=== PATIENT | male | born 1940 | race Caucasian/White ===

== ENCOUNTER → 2016-12-21 | Outpatient (CLI) | payer MEDICARE, OTHER ==
[~2016-12-21] MED LIST: ASPIRIN 81M81 MG/TA2 PO; BIAXIN 500MG T500 MG PO; CEPACOL SORE TH1 LO8 MM; CRESTOR20 MG PO; DEMADEX 20MG20 M1 PO; DEMADEX10 MG PO; DOXYCYCLINE 10100 MG PO; DULERA1 ARO IH; FLOVENT 110MCG7.9 GM IH; FORADIL AERO0.012 MG IH; HCTZ 25MG TAB25 MG PO; K-DUR 2020 MEQ PO; KLOR-CON M2020 MEQ PO; LASIX 20MG TABL20 MG PO; LEVAQUIN 750MG750 M1 PO; MICARDIS HCT 121 TA1 PO; MICARDIS HCT 121 TAB PO; MICARDIS40 MG PO; PLAQUENIL 200M200 MG PO; PREDNISONE 5MG5 MG PO; PREDNISONE20 MG PO; REQUIP 0.5MG0.5 MG PO; ROBITUSSIN100 MG/5 M PO; RT SPIRIVA18 MCG IH; SINGULAIR 110 MG/TAB PO; ZYRTEC 10MG10 MG PO; ZYRTEC ALLERGY10 MG PO
== END ==
LOC: COL.RAD 09:00
DX: M25.511 Pain in right shoulder (principal)
CPT/HCPCS: J3301; Q9967

== ENCOUNTER → 2016-12-24 | Outpatient (CLI) | payer MEDICARE, OTHER ==
[~2016-12-24] VITALS: Ht 180.3 cm; Wt 101.2 kg
[2017-01-04 08:14] VITALS: BP 122/76; PULSE 68
[2017-02-01 08:16] VITALS: BP 130/80
[2017-02-15 08:27] VITALS: BP 138/80; PULSE 72
[2017-03-01 08:15] VITALS: BP 140/80; PULSE 76
[2017-03-15 08:30] VITALS: BP 133/72; PULSE 67
[2017-03-29 08:37] VITALS: BP 134/76; PULSE 74
== END ==
LOC: LIGHT 09:00
DX: G47.33 Obstructive sleep apnea (adult) (pediatric) (principal); E78.4 Other hyperlipidemia; I10 Essential (primary) hypertension; E66.8 Other obesity; Z68.29 Body mass index [BMI] 29.0-29.9, adult

== ENCOUNTER 2017-01-12 08:30 | Outpatient (RCR) | payer MEDICARE, OTHER ==
[~2017-01-12 08:30] MED LIST changes: -PLAQUENIL 200M200 MG PO; -PREDNISONE 5MG5 MG PO
[2017-03-01] MEDS ORDERED: PLAQUENIL 200M200 MG PO (08:27)
[2017-03-01] MEDS ORDERED: PREDNISONE 5MG5 MG PO (08:28)
== END 2017-03-02 | disposition home or self-care (01) ==
LOC: MKS.ESL.PT
DX: M25.512 Pain in left shoulder (principal)
CPT/HCPCS: G8978-GP; G8979-GP; G8980-GP

== ENCOUNTER → 2017-04-08 | Outpatient (CLI) | payer MEDICARE, OTHER ==
[~2017-04-08] VITALS: Ht 180.3 cm; Wt 103.4 kg
[~2017-04-08] MED LIST changes: +PLAQUENIL 200M200 MG PO; +PREDNISONE 5MG5 MG PO
[2017-04-08 08:27] VITALS: BP 151/85; PULSE 76
[2017-04-26 08:23] VITALS: BP 135/77; PULSE 85
[2017-05-10 08:22] VITALS: BP 126/76; PULSE 64
[2017-06-07 08:29] VITALS: BP 144/70; PULSE 56
[2017-06-21 10:01] VITALS: BP 136/80; PULSE 76
== END ==
LOC: LIGHT 08:25
DX: G47.33 Obstructive sleep apnea (adult) (pediatric) (principal); I10 Essential (primary) hypertension; E66.9 Obesity, unspecified; Z68.31 Body mass index [BMI] 31.0-31.9, adult; Z71.3 Dietary counseling and surveillance; E78.5 Hyperlipidemia, unspecified

== ENCOUNTER → 2017-06-24 | Outpatient (CLI) | payer MEDICARE, OTHER ==
[2017-06-24 10:38] VITALS: BP 140/76; PULSE 68
== END ==
LOC: LIGHT 05-27 10:35
DX: G47.33 Obstructive sleep apnea (adult) (pediatric) (principal); I10 Essential (primary) hypertension; E66.9 Obesity, unspecified; Z71.3 Dietary counseling and surveillance; E78.5 Hyperlipidemia, unspecified

== ENCOUNTER → 2017-08-05 | Outpatient (CLI) | payer MEDICARE, OTHER ==
[~2017-08-05] VITALS: Ht 180.3 cm; Wt 101.6 kg
[~2017-08-05] MED LIST changes: +RT ADVAIR 128 DISKUS IH
[2017-08-16 08:28] VITALS: BP 142/84; PULSE 72
[2017-08-30 08:05] VITALS: BP 128/60; PULSE 726
== END ==
LOC: LIGHT 09:30
DX: G47.33 Obstructive sleep apnea (adult) (pediatric) (principal); I10 Essential (primary) hypertension; E66.9 Obesity, unspecified; Z71.3 Dietary counseling and surveillance; E78.5 Hyperlipidemia, unspecified

== ENCOUNTER → 2017-09-16 | Outpatient (CLI) | payer MEDICARE, OTHER | LOC: LIGHT 07:59 | DX: G47.33 Obstructive sleep apnea (adult) (pediatric) (principal); I10 Essential (primary) hypertension; E66.9 Obesity, unspecified; Z71.3 Dietary counseling and surveillance; E78.5 Hyperlipidemia, unspecified ==

== ENCOUNTER → 2017-11-18 | Outpatient (CLI) | payer MEDICARE, OTHER ==
[~2017-11-18] VITALS: Ht 180.3 cm; Wt 101.8 kg
[2017-11-18 09:28] VITALS: BP 148/78; PULSE 72
== END ==
LOC: LIGHT 08:44
DX: G47.33 Obstructive sleep apnea (adult) (pediatric) (principal); I10 Essential (primary) hypertension; E66.9 Obesity, unspecified; Z68.31 Body mass index [BMI] 31.0-31.9, adult; Z71.3 Dietary counseling and surveillance; E78.5 Hyperlipidemia, unspecified
CPT/HCPCS: G0463

== ENCOUNTER → 2017-12-02 | Outpatient (CLI) | payer MEDICARE, OTHER | LOC: COL.RAD 09:19 | DX: K42.0 Umbilical hernia with obstruction, without gangrene (principal); K63.89 Other specified diseases of intestine | CPT/HCPCS: Q9967 ==

== ENCOUNTER → 2018-01-13 | Outpatient (CLI) | payer MEDICARE, OTHER ==
[~2018-01-13] VITALS: Ht 180.3 cm; Wt 103.9 kg
[2018-01-13 09:21] VITALS: BP 148/80; PULSE 72
[2018-01-17 08:28] VITALS: BP 120/70; PULSE 72
== END ==
LOC: LIGHT 08:58
DX: G47.33 Obstructive sleep apnea (adult) (pediatric) (principal); I10 Essential (primary) hypertension; E66.9 Obesity, unspecified; Z68.31 Body mass index [BMI] 31.0-31.9, adult; Z71.3 Dietary counseling and surveillance; E78.5 Hyperlipidemia, unspecified
CPT/HCPCS: G0463

== ENCOUNTER 2018-01-17 12:53 | Inpatient (IN) | payer MEDICARE, OTHER ==
[~2018-01-17] VITALS: Ht 180.3 cm; Wt 104.7 kg
[2018-02-02] VITALS (11 sets, daily range): BP systolic 104–156; BP diastolic 49–82; PULSE 67–90; TEMP 98–98.7
[2018-02-02] MEDS ORDERED: RT ADVAIR 228 DISKUS IH (06:34)
[2018-02-02] MEDS ORDERED: K-DUR20 MEQ PO (06:37)
[2018-02-02 06:38] LABS: BASO # 0.1 (0.0-0.2); BASO % 1.2 % (0.0-2.0); EOS # 0.3 (0.0-0.7); GRAN # 3.2 (1.4-6.5); HEMATOCRIT 45.5 % (42.0-52.0); HEMOGLOBIN 15.5 g/dl (13.5-18.0); LYMPH # 1.6 (1.2-3.4); LYMPH % 27.1 % (20.0-51.0); MEAN CELL VOLUME 91 fl (80.0-100.0); MEAN CORPUSCULAR HEMOGLOBIN 31 pg (27.0-31.0); MEAN CORPUSCULAR HGB CONC 34 g/dl (33.0-37.0); MEAN PLATELET VOLUME 11.2 fl (7.4-10.4); MONO # 0.7 (0.1-0.6); MONO % 11.2 % (1.7-9.3); PLATELET COUNT 219 K/mm3 (130-400); RED BLOOD COUNT 4.99 M/mm3 (4.20-5.60); REDCELL DISTRIBUTION WIDTH-CV 13.3 % (11.5-14.5)
[2018-02-02 06:52] LABS: BILIRUBIN,TOTAL 1.9 mg/dL (0.0-1.0); CALCIUM 8.9 mg/dL (8.4-10.2); CREATININE, serum 1.05 mg/dL (0.66-1.25); POTASSIUM 3.8 mmol/L (3.4-5.0); TOTAL PROTEIN 7.2 gm/dL (6.4-8.2)
[2018-02-03 01:42] VITALS: BP 134/62; PULSE 74; TEMP 98.1
[2018-02-03 05:30] VITALS: BP 112/53; PULSE 60; TEMP 98.3
[2018-02-03 06:29] LABS: HEMATOCRIT 39.2 % (42.0-52.0)
[2018-02-03 06:48] LABS: CALCIUM 8.3 mg/dL (8.4-10.2); CREATININE, serum 1.2 mg/dL (0.66-1.25); MAGNESIUM 1.8 mg/dL (1.6-2.3); POTASSIUM 3.9 mmol/L (3.4-5.0)
[2018-02-03 06:53] LABS: HEMOGLOBIN 12.9 g/dl (13.5-18.0)
[2018-02-03 09:23] VITALS: BP 107/54; PULSE 61; TEMP 98.3
[2018-02-03 14:00] VITALS: BP 121/51; PULSE 77; TEMP 97.7
[2018-02-03 17:48] VITALS: BP 132/72; PULSE 70; TEMP 97.8
[2018-02-03 22:00] VITALS: BP 131/60; PULSE 75; TEMP 98.1
[2018-02-04 06:04] VITALS: BP 143/66; PULSE 71; TEMP 98.2
[2018-02-04 10:10] VITALS: BP 136/78; PULSE 87; TEMP 97.9
== END 2018-02-04 12:18 | disposition home or self-care (01) | DRG 331 ==
LOC: INPTSU 02-02 05:45 → SURG 02-02 08:00
PROVIDERS: Surgery
PROC: 8E0W4CZ Robotic Assisted Procedure of Trunk Region, Percutaneous Endoscopic Approach (ICD-10-PCS; 2018-02-02)
PROC: 0DTF4ZZ Resection of Right Large Intestine, Percutaneous Endoscopic Approach (ICD-10-PCS; principal; 2018-02-02 08:00)
DX: C18.2 Malignant neoplasm of ascending colon (principal); J44.9 Chronic obstructive pulmonary disease, unspecified; I27.20 Pulmonary hypertension, unspecified; L93.0 Discoid lupus erythematosus; I25.10 Atherosclerotic heart disease of native coronary artery without angina pectoris; J84.10 Pulmonary fibrosis, unspecified
CPT/HCPCS: A4314; A9284; J0690; J1100; J1650; J2250; J2405; J2704; J2710; J2765; J3010; J7030

== ENCOUNTER → 2018-02-10 | Outpatient (CLI) | payer MEDICARE, OTHER ==
[~2018-02-10] VITALS: Ht 180.3 cm; Wt 101.8 kg
[~2018-02-10] MED LIST changes: +K-DUR20 MEQ PO; +RT ADVAIR 228 DISKUS IH
== END ==
LOC: LIGHT 08:30
DX: G47.33 Obstructive sleep apnea (adult) (pediatric) (principal); I10 Essential (primary) hypertension; E66.9 Obesity, unspecified; Z68.31 Body mass index [BMI] 31.0-31.9, adult; Z71.3 Dietary counseling and surveillance; E78.5 Hyperlipidemia, unspecified
CPT/HCPCS: G0463

== ENCOUNTER → 2018-03-31 | Outpatient (CLI) | payer MEDICARE, OTHER ==
[2018-03-31 09:13] VITALS: BP 124/70; PULSE 68
== END ==
LOC: LIGHT 08:34
DX: G47.33 Obstructive sleep apnea (adult) (pediatric) (principal); I10 Essential (primary) hypertension; E66.9 Obesity, unspecified; Z71.3 Dietary counseling and surveillance; E78.5 Hyperlipidemia, unspecified
CPT/HCPCS: G0463

== ENCOUNTER → 2018-05-03 | Outpatient (CLI) | payer MEDICARE, OTHER ==
[2018-05-03 15:04] LABS: HEMATOCRIT 46.8 % (42.0-52.0); HEMOGLOBIN 15.8 g/dl (13.5-18.0); MEAN CELL VOLUME 91 fl (80.0-100.0); MEAN CORPUSCULAR HEMOGLOBIN 31 pg (27.0-31.0); MEAN CORPUSCULAR HGB CONC 34 g/dl (33.0-37.0); MEAN PLATELET VOLUME 11.6 fl (7.4-10.4); PLATELET COUNT 216 K/mm3 (130-400); RED BLOOD COUNT 5.17 M/mm3 (4.20-5.60); REDCELL DISTRIBUTION WIDTH-CV 13.5 % (11.5-14.5)
[2018-05-03 15:15] LABS: CALCIUM 9.2 mg/dL (8.4-10.2); CREATININE, serum 1.21 mg/dL (0.66-1.25); POTASSIUM 3.6 mmol/L (3.4-5.0)
== END ==
LOC: COL.LAB 14:39
PROVIDERS: Internal Medicine Interventional Cardiology
DX: I70.213 Atherosclerosis of native arteries of extremities with intermittent claudication, bilateral legs (principal)

== ENCOUNTER → 2018-05-12 | Outpatient (CLI) | payer MEDICARE, OTHER ==
[~2018-05-12] MED LIST changes: +PLAVIX 75MG TAB75 MG PO
== END ==
LOC: LIGHT 08:46
DX: G47.33 Obstructive sleep apnea (adult) (pediatric) (principal); I10 Essential (primary) hypertension; E78.5 Hyperlipidemia, unspecified; E66.9 Obesity, unspecified
CPT/HCPCS: G0463

== ENCOUNTER → 2018-05-17 | Outpatient (CLI) | payer MEDICARE, OTHER ==
[2018-05-17 08:02] LABS: HEMATOCRIT 45.8 % (42.0-52.0); HEMOGLOBIN 15.2 g/dl (13.5-18.0); MEAN CELL VOLUME 92 fl (80.0-100.0); MEAN CORPUSCULAR HEMOGLOBIN 31 pg (27.0-31.0); MEAN CORPUSCULAR HGB CONC 33 g/dl (33.0-37.0); MEAN PLATELET VOLUME 11.4 fl (7.4-10.4); PLATELET COUNT 227 K/mm3 (130-400); RED BLOOD COUNT 4.97 M/mm3 (4.20-5.60); REDCELL DISTRIBUTION WIDTH-CV 13.9 % (11.5-14.5)
[2018-05-17 08:13] LABS: CALCIUM 8.9 mg/dL (8.4-10.2); CREATININE, serum 1.1 mg/dL (0.66-1.25); POTASSIUM 3.6 mmol/L (3.4-5.0)
== END ==
LOC: COL.LAB 07:24
PROVIDERS: Internal Medicine Interventional Cardiology
DX: R60.0 Localized edema (principal); L03.116 Cellulitis of left lower limb; B99.9 Unspecified infectious disease

== ENCOUNTER → 2018-06-07 | Outpatient (CLI) | payer MEDICARE, OTHER ==
[2018-06-07 17:09] LABS: HEMATOCRIT 45.8 % (42.0-52.0); HEMOGLOBIN 15.1 g/dl (13.5-18.0); MEAN CELL VOLUME 92 fl (80.0-100.0); MEAN CORPUSCULAR HEMOGLOBIN 30 pg (27.0-31.0); MEAN CORPUSCULAR HGB CONC 33 g/dl (33.0-37.0); MEAN PLATELET VOLUME 11.1 fl (7.4-10.4); PLATELET COUNT 241 K/mm3 (130-400); RED BLOOD COUNT 4.97 M/mm3 (4.20-5.60); REDCELL DISTRIBUTION WIDTH-CV 13.9 % (11.5-14.5)
[2018-06-07 17:17] LABS: CALCIUM 8.7 mg/dL (8.4-10.2); CREATININE, serum 1.05 mg/dL (0.66-1.25); POTASSIUM 3.7 mmol/L (3.4-5.0)
== END ==
LOC: COL.LAB 16:36
PROVIDERS: Internal Medicine Interventional Cardiology
DX: R60.0 Localized edema (principal)

== ENCOUNTER → 2018-06-23 | Outpatient (CLI) | payer MEDICARE, OTHER ==
[~2018-06-23] MED LIST changes: +LASIX 40MG TABL40 MG PO
[2018-06-23 10:34] VITALS: BP 118/68; PULSE 72
== END ==
LOC: LIGHT 09:44
DX: G47.33 Obstructive sleep apnea (adult) (pediatric) (principal); I10 Essential (primary) hypertension; E78.5 Hyperlipidemia, unspecified; E66.9 Obesity, unspecified; Z71.3 Dietary counseling and surveillance
CPT/HCPCS: G0463

== ENCOUNTER → 2018-07-28 | Outpatient (CLI) | payer MEDICARE, OTHER ==
[~2018-07-28] VITALS: Ht 180.3 cm; Wt 94.8 kg
[2018-07-28 09:24] VITALS: BP 140/86; PULSE 64
== END ==
LOC: LIGHT 09:15
DX: G47.33 Obstructive sleep apnea (adult) (pediatric) (principal); I10 Essential (primary) hypertension; E03.9 Hypothyroidism, unspecified; E66.9 Obesity, unspecified; Z68.29 Body mass index [BMI] 29.0-29.9, adult; Z71.3 Dietary counseling and surveillance
CPT/HCPCS: G0463

== ENCOUNTER → 2018-09-15 | Outpatient (CLI) | payer MEDICARE, OTHER ==
[2018-09-12 08:35] VITALS: BP 136/88; PULSE 60
[~2018-09-15] VITALS: Ht 180.3 cm; Wt 95.7 kg
== END ==
LOC: LIGHT 09:12
DX: G47.33 Obstructive sleep apnea (adult) (pediatric) (principal); I10 Essential (primary) hypertension; E78.5 Hyperlipidemia, unspecified; E66.9 Obesity, unspecified; Z68.29 Body mass index [BMI] 29.0-29.9, adult; Z71.3 Dietary counseling and surveillance
CPT/HCPCS: G0463

== ENCOUNTER → 2018-11-17 | Outpatient (CLI) | payer MEDICARE, OTHER ==
[~2018-11-17] VITALS: Ht 180.3 cm; Wt 94.3 kg
[2018-11-17 08:40] VITALS: BP 156/68; PULSE 72
== END ==
LOC: LIGHT 08:13
DX: G47.33 Obstructive sleep apnea (adult) (pediatric) (principal); I10 Essential (primary) hypertension; E78.5 Hyperlipidemia, unspecified; E66.9 Obesity, unspecified; Z68.29 Body mass index [BMI] 29.0-29.9, adult; Z71.3 Dietary counseling and surveillance
CPT/HCPCS: G0463

== ENCOUNTER → 2019-01-19 | Outpatient (CLI) | payer MEDICARE, OTHER ==
[2019-01-16 08:27] VITALS: BP 136/72; PULSE 72
[~2019-01-19] VITALS: Ht 180.3 cm; Wt 93.9 kg
[~2019-01-19] MED LIST changes: +TENORMIN 2525 MG/TAB PO
== END ==
LOC: LIGHT 08:32
DX: G47.33 Obstructive sleep apnea (adult) (pediatric) (principal); I10 Essential (primary) hypertension; E78.5 Hyperlipidemia, unspecified; E66.9 Obesity, unspecified; Z68.28 Body mass index [BMI] 28.0-28.9, adult; Z71.3 Dietary counseling and surveillance
CPT/HCPCS: G0463

== ENCOUNTER → 2019-03-23 | Outpatient (CLI) | payer MEDICARE, OTHER ==
[~2019-03-23] VITALS: Ht 180.3 cm; Wt 91.6 kg
[~2019-03-23] MED LIST changes: +HYGROTON 2525 MG/TAB PO
[2019-03-23 09:10] VITALS: BP 150/86; PULSE 68
[2019-03-27 08:24] VITALS: BP 142/90; PULSE 88
== END ==
LOC: LIGHT 08:34
DX: G47.33 Obstructive sleep apnea (adult) (pediatric) (principal); I10 Essential (primary) hypertension; E78.5 Hyperlipidemia, unspecified; E66.9 Obesity, unspecified; Z68.28 Body mass index [BMI] 28.0-28.9, adult; Z71.3 Dietary counseling and surveillance
CPT/HCPCS: G0463

== ENCOUNTER → 2019-07-27 | Outpatient (CLI) | payer MEDICARE, OTHER ==
[~2019-07-27] VITALS: Ht 180.3 cm; Wt 92.1 kg
[~2019-07-27] MED LIST changes: +BYSTOLIC5 MG PO
[2019-07-27 08:45] VITALS: BP 124/66; PULSE 72
[2019-07-31 08:27] VITALS: BP 126/70; PULSE 56
== END ==
LOC: LIGHT 08:39
DX: G47.33 Obstructive sleep apnea (adult) (pediatric) (principal); I10 Essential (primary) hypertension; E78.5 Hyperlipidemia, unspecified; E66.9 Obesity, unspecified; Z68.28 Body mass index [BMI] 28.0-28.9, adult; Z71.3 Dietary counseling and surveillance
CPT/HCPCS: G0463

== ENCOUNTER → 2020-04-25 | Outpatient (CLI) | payer MEDICARE, OTHER ==
[2020-04-22 08:25] VITALS: BP 146/76; PULSE 68
[~2020-04-25] VITALS: Ht 180.3 cm; Wt 101.2 kg
[~2020-04-25] MED LIST changes: +BYSTOLIC10 MG PO; +COREG12.5 MG PO
== END ==
LOC: LIGHT 12-28 11:50
DX: E66.8 Other obesity (principal); Z68.31 Body mass index [BMI] 31.0-31.9, adult; I10 Essential (primary) hypertension; E78.5 Hyperlipidemia, unspecified; G47.30 Sleep apnea, unspecified
CPT/HCPCS: G0463

== ENCOUNTER → 2020-07-25 | Outpatient (CLI) | payer MEDICARE, OTHER ==
[~2020-07-25] VITALS: Ht 180.3 cm; Wt 102.7 kg
[2020-07-25 09:04] VITALS: BP 146/86; PULSE 76
[2020-07-29 08:20] VITALS: BP 148/64; PULSE 76
== END ==
LOC: LIGHT 08:46
DX: E66.8 Other obesity (principal); Z68.31 Body mass index [BMI] 31.0-31.9, adult; I10 Essential (primary) hypertension; E78.5 Hyperlipidemia, unspecified
CPT/HCPCS: G0463

== ENCOUNTER 2021-07-13 02:00 | Emergency (ER) | payer MEDICARE, OTHER ==
[~2021-07-13] VITALS: Ht 180.3 cm; Wt 103.6 kg
[2021-07-13 02:15] VITALS: TEMP 97.2
[2021-07-13 03:06] VITALS: BP 124/70; PULSE 76
== END 2021-07-13 03:06 | disposition home or self-care (01) ==
LOC: COL.ER 02:00
DX: M79.671 Pain in right foot (principal)

== ENCOUNTER 2022-01-15 22:54 | Emergency (ER) | payer MEDICARE, OTHER ==
[~2022-01-15] VITALS: Ht 180.3 cm; Wt 110.0 kg
[2022-01-15 23:55] VITALS: BP 161/77; PULSE 87; TEMP 97.8
== END 2022-01-15 23:55 | disposition home or self-care (01) ==
LOC: COL.ER 22:54
DX: R60.0 Localized edema (principal)

== ENCOUNTER → 2022-06-04 | Outpatient (CLI) | payer MEDICARE, OTHER | LOC: COL.RAD 09:19 | DX: N18.32 Chronic kidney disease, stage 3b (principal) ==

== ENCOUNTER 2023-02-18 09:26 | Emergency (ER) | payer MEDICARE, OTHER ==
[~2023-02-18] VITALS: Ht 152.4 cm; Wt 108.2 kg
[2023-02-18 09:32] VITALS: TEMP 98.2
[2023-02-18] MEDS ORDERED: ZOVIRAX800 MG PO (10:11)
[2023-02-18 10:15] VITALS: BP 150/70; PULSE 85
== END 2023-02-18 10:23 | disposition home or self-care (01) ==
LOC: COL.ER 09:26
DX: B02.9 Zoster without complications (principal); Z28.310 Unvaccinated for COVID-19; Z87.891 Personal history of nicotine dependence

== ENCOUNTER 2023-12-22 00:56 | Emergency (ER) | payer MEDICARE, OTHER ==
[~2023-12-22] VITALS: Ht 180.3 cm; Wt 106.8 kg
[~2023-12-22 00:56] MED LIST changes: +ZOVIRAX800 MG PO
[2023-12-22 00:58] VITALS: TEMP 98
[2023-12-22 01:57] VITALS: BP 161/76; PULSE 77
== END 2023-12-22 01:57 | disposition home or self-care (01) ==
LOC: COL.ER 00:56
DX: M25.551 Pain in right hip (principal); Z96.642 Presence of left artificial hip joint

== ENCOUNTER 2024-05-03 12:59 | Emergency (ER) | payer MEDICARE, OTHER ==
[~2024-05-03] VITALS: Ht 180.3 cm; Wt 109.5 kg
[2024-05-03] MEDS ORDERED: PREDNISONE20 MG PO (16:13)
[2024-05-03 16:25] VITALS: BP 176/90; PULSE 62; TEMP 98.2
== END 2024-05-03 16:25 | disposition home or self-care (01) ==
LOC: COL.ER 12:59
DX: S20.229A Contusion of unspecified back wall of thorax, initial encounter (principal); W19.XXXA Unspecified fall, initial encounter

== ENCOUNTER → 2024-07-05 | Outpatient (CLI) | payer MEDICARE, OTHER | LOC: COL.RAD 06:43 | DX: M47.814 Spondylosis without myelopathy or radiculopathy, thoracic region (principal); M25.78 Osteophyte, vertebrae ==

== ENCOUNTER → 2024-07-06 | Outpatient (CLI) | payer MEDICARE, OTHER | LOC: MHCPAIN 10:35 | DX: M54.6 Pain in thoracic spine (principal); M48.14 Ankylosing hyperostosis [Forestier], thoracic region | CPT/HCPCS: G0463 ==